=== PATIENT | female | born 1960 | race African-American/Black ===

== ENCOUNTER 2025-02-11 07:36 | Emergency (ER) | payer OTHER ==
[~2025-02-11] VITALS: Ht 167.6 cm; Wt 64.0 kg
[2025-02-11 07:43] VITALS: O2SAT 99
[2025-02-11] MEDS ORDERED: IBUP-1455 MT (09:15)
[2025-02-11] MEDS ORDERED: CYCL5TAB3 MT (09:15)
[2025-02-11] MEDS: TRAMADOL 50MG TABLET PO ONE (09:26)
[2025-02-11] MEDS: IBUPROFEN 600MG TABLET PO ONE (09:26)
[2025-02-11 09:32] VITALS: BP 140/81; PULSE 74; RESP 16; TEMP 36.8; O2SAT 96
== END 2025-02-11 09:35 | disposition home or self-care (01) ==
LOC: ER 07:36
DX: S13.4XXA Sprain of ligaments of cervical spine, initial encounter (principal); S13.9XXA Sprain of joints and ligaments of unspecified parts of neck, initial encounter; Z79.899 Other long term (current) drug therapy; V43.52XA Car driver injured in collision with other type car in traffic accident, initial encounter; Y93.89 Activity, other specified; Y92.410 Unspecified street and highway as the place of occurrence of the external cause; Y99.8 Other external cause status
CPT/HCPCS: 99283